=== PATIENT | female | born 1990 | race Caucasian/White ===

== ENCOUNTER 2021-11-06 15:26 | Emergency (ER) | payer MEDICAID ==
[~2021-11-06] VITALS: Ht 162.6 cm; Wt 92.1 kg
[2021-11-06 15:40] VITALS: BP 122/78
[2021-11-06] MEDS ORDERED: IBUP-2213 PO (16:28)
[2021-11-06] MEDS ORDERED: ONDA8TAB87 PO (16:28)
[2021-11-06] MEDS ORDERED: CIPR500T4 PO (16:28)
[2021-11-06] MEDS ORDERED: ACET-8386 PO (16:28)
[2021-11-06] MEDS: KETOROLAC 60 MG/2 ML VIAL IM ONE (16:51)
[2021-11-06] MEDS: ONDANSETRON 4 MG ODT PO ONE (16:51)
[2021-11-06 16:56] VITALS: BP 108/70
--- NOTE | 2021-11-06 16:57 | NUR ---
Patient discharged with v/s stable. Written and verbal after care instructions given and explained. Patient verbalized understanding. Ambulatory with steady gait. All questions addressed prior to discharge. Advised to follow up with PMD.
== END 2021-11-06 16:57 | disposition home or self-care (01) ==
LOC: MED 15:26
DX: N39.0 Urinary tract infection, site not specified (principal); R10.9 Unspecified abdominal pain
CPT/HCPCS: 81002; 81025; 96372; 99283; J1885; Q0162

== ENCOUNTER 2023-09-28 13:27 | Emergency (ER) | payer MEDICAID ==
[~2023-09-28] VITALS: Ht 167.6 cm; Wt 84.4 kg
[~2023-09-28 13:27] MED LIST: ACET-8905 PO; CIPR500T4 PO; IBUP-2213 PO; ONDA8TAB87 PO
[2023-09-28 13:44] VITALS: BP 96/63; PULSE 85; RESP 18; TEMP 97.6; O2SAT 99
[2023-09-28] MEDS ORDERED: ACET-10509 PO (14:21)
[2023-09-28] MEDS ORDERED: ROB PO (14:22)
[2023-09-28 15:34] LABS: FLU A ANTIGEN negative (NEGATIVE); FLU B ANTIGEN POSITIVE (NEGATIVE)
[2023-09-28] MEDS ORDERED: TAM75 PO (15:37)
== END 2023-09-28 14:32 | disposition home or self-care (01) ==
LOC: MED 13:27
DX: O99.512 Diseases of the respiratory system complicating pregnancy, second trimester (principal); J10.1 Influenza due to other identified influenza virus with other respiratory manifestations; Z20.822 Contact with and (suspected) exposure to COVID-19; Z3A.17 17 weeks gestation of pregnancy; Z79.899 Other long term (current) drug therapy
CPT/HCPCS: 99283

== ENCOUNTER 2024-01-01 22:12 | Emergency (ER) | payer MEDICAID ==
[~2024-01-01] VITALS: Ht 167.6 cm; Wt 88.5 kg
[~2024-01-01 22:12] MED LIST changes: +ACET-10509 PO; +ROB PO; +TAM75 PO
[2024-01-01 22:33] VITALS: BP 110/67; PULSE 85; RESP 16; TEMP 96.9; O2SAT 98
[2024-01-02] MEDS ORDERED: LIDOCAINE MPF 1% 5 ML ONE (01:43)
[2024-01-02] MEDS ORDERED: cefTRIAXone 1,000 MG VIAL ONE (01:43)
[2024-01-02] MEDS: cefTRIAXone 1,000 MG in LIDOCAINE MPF 1% 2.1 ML IM ONE (01:47)
[2024-01-02] MEDS ORDERED: LIDOCAINE/EPI 1% 1:100000 20 ML VIAL INJ ONE (01:54)
[2024-01-02] MEDS: LIDOCAINE MPF 1% 10 MG/ML VIAL INJ ONE (01:54)
[2024-01-02] MEDS ORDERED: CEPH-588 PO (02:40)
== END 2024-01-02 02:45 | disposition home or self-care (01) ==
LOC: MED 22:12
DX: O26.893 Other specified pregnancy related conditions, third trimester (principal); L02.01 Cutaneous abscess of face; Z3A.00 Weeks of gestation of pregnancy not specified; Z79.1 Long term (current) use of non-steroidal anti-inflammatories (NSAID); Z79.2 Long term (current) use of antibiotics; Z79.899 Other long term (current) drug therapy
CPT/HCPCS: 10060; 96372; 99283; J0696; J2001

== ENCOUNTER 2024-01-29 17:20 | Emergency (ER) | payer MEDICAID ==
[~2024-01-29] VITALS: Ht 170.2 cm; Wt 90.9 kg
[~2024-01-29 17:20] MED LIST changes: +CEPH-588 PO
[2024-01-29 17:40] VITALS: BP 126/77; PULSE 86; RESP 18; TEMP 97; O2SAT 97
[2024-01-29] MEDS: LIDOCAINE MPF 1% 10 MG/ML VIAL INJ ONE (19:40)
[2024-01-29 19:55] VITALS: BP 126/77; PULSE 86; RESP 18; TEMP 97; O2SAT 97
[2024-01-29] MEDS ORDERED: CEPH500C16 PO (19:55)
[2024-01-29] MEDS ORDERED: BACI-418 TP (19:55)
== END 2024-01-29 20:08 | disposition home or self-care (01) ==
LOC: MED 17:20
DX: O99.713 Diseases of the skin and subcutaneous tissue complicating pregnancy, third trimester (principal); L02.01 Cutaneous abscess of face; Z3A.35 35 weeks gestation of pregnancy; Z79.899 Other long term (current) drug therapy
CPT/HCPCS: 99284; J2001

== ENCOUNTER 2024-02-23 19:49 | Emergency (ER) | payer MEDICAID ==
[~2024-02-23] VITALS: Ht 167.6 cm; Wt 89.9 kg
[~2024-02-23 19:49] MED LIST changes: -ACET-10509 PO; +ACET500T99 PO; +BACI-418 TP; +CEPH500C16 PO
[2024-02-23 20:05] VITALS: BP 108/70; PULSE 89; RESP 22; TEMP 98.5; O2SAT 96
[2024-02-23] MEDS ORDERED: OFLOS BOTH EYES (20:24)
== END 2024-02-23 20:32 | disposition home or self-care (01) ==
LOC: MED 19:49
DX: O99.830 Other infection carrier state complicating pregnancy (principal); H10.89 Other conjunctivitis; B96.89 Other specified bacterial agents as the cause of diseases classified elsewhere; Z79.899 Other long term (current) drug therapy
CPT/HCPCS: 99283